=== PATIENT | male | born 1955 | race Caucasian/White ===

== ENCOUNTER → 2017-02-17 | Outpatient (REF) ==
[~2017-02-17] MED LIST: ALEVE 220MG220 MG PO; CENTRUM SILVER1 CTB PO; EC NAPROSYN500 MG PO; PLAQUENIL 200M200 MG PO; PRINZIDE 12.5 M1 TAB PO
[2017-02-17 18:58] LABS: TOTAL IRON BINDING CAPACITY 266 ug/dL (261-462)
[2017-02-17 19:08] LABS: FERRITIN 523 ng/mL (18-464)
== END ==
LOC: ZLAB.WCH 18:16
PROVIDERS: Nurse Practitioner Family
DX: Z01.89 Encounter for other specified special examinations (principal)

== ENCOUNTER → 2019-04-17 | Outpatient (CLI) | payer BC | LOC: COL.RAD 11:00 | DX: R06.02 Shortness of breath (principal) ==

== ENCOUNTER 2019-09-13 12:20 | Inpatient (IN) | payer BC ==
[~2019-09-13] VITALS: Ht 177.8 cm; Wt 96.7 kg
[2019-10-18] VITALS (9 sets, daily range): BP systolic 104–142; BP diastolic 57–88; PULSE 16–99; TEMP 98.7–98.9
[2019-10-18] MEDS ORDERED: NORVASC 10MG10 MG PO (07:53)
[2019-10-18] MEDS ORDERED: MICARDIS80 MG PO (07:54)
[2019-10-18 09:47] LABS: ALBUMIN 4.1 gm/dL (3.5-5.0); BILIRUBIN,TOTAL 0.5 mg/dL (0.0-1.0); CALCIUM 10.3 mg/dL (8.4-10.2); CREATININE, serum 1.12 (0.66-1.25); POTASSIUM 4.9 mmol/L (3.4-5.0); TOTAL PROTEIN 7.6 gm/dL (6.4-8.2)
--- NOTE | 2019-10-18 11:55 | NUR ---
PATIENT BACK IN ROOM 331 POST OP RTK. A&O. VSS. DENIES PAIN IN RLE. PATIENT IS ABLE TO MOVE BLE. RTK DRESSING IS CD&I WITH ACEWRAP AND ICE PACK INPLACE. TEDS TO LLE. SCD'S TO BLE. POSITIVE PEDAL PULSES TO BLE. PATIENT TOLERATING LIQUIDS WELL. NO C/O N/V. IV FLUIDS INFUSING INTO LEFT WRIST IV VIA PUMP. HEAD TO TOE ASSESSMENT NWL. FAMILY AT BEDSIDE. CALL LIGHT IN REACH.
--- NOTE | 2019-10-18 14:12 | NUR ---
SW met with the patient to discuss discharge plan. The patient lives in [place] with his , Juan (ph#[phone]). He reports independence with ADLs and has a FWW and crutches. The patient's primary care provider is Meredith Mak PA-C and he receives his medications at [facility]. He reports no difficulties obtaining his meds. The patient does not have advanced directives in EMR, but he states that he does have them completed. He states that his is his DPOA-HC. The patient plans to return home with his and receive outpatient PT at [facility] upon discharge. No additional needs at this time.
--- NOTE | 2019-10-18 19:00 | NUR ---
PATIENT RESTING IN BED DURING CHANGE OF SHIFT REPORT FROM DAY SHIFT NURSE. IV FLUIDS INFUSING WITH NO PROBLEMS, PATIENT DENIES ANY NEEDS DURING REPORT. HAS VOIDED WITH NO PROBLEMS, TAKING ORAL FLUIDS/FOODS WITH NO PROBLEMS.
--- NOTE | 2019-10-18 23:00 | NUR ---
IV SITE SALINE LOCKED PER PATIENT REQUEST.
[2019-10-19] VITALS: BP 127/82; PULSE 70; TEMP 98
--- NOTE | 2019-10-19 00:30 | NUR ---
RESTING IN BED WITH NO COMPLAINTS, VOIDING WITH NO PROBLEMS, STANDS TO VOID.
--- NOTE | 2019-10-19 01:00 | NUR ---
RESTING WITH CPAP ON/EYES CLOSED/BREATHING NONLABORED & EVEN, AWAKENS WHEN NAME CALLED, DENIES ANY NEEDS OR CONCERNS.
--- NOTE | 2019-10-19 03:59 | NUR ---
Patient sleeping, resting with eyes closed with breathing nonlabored and even, continues CPAP. Does not awaken when door to room opens.
[2019-10-19 04:33] VITALS: BP 127/74; PULSE 68; TEMP 98
--- NOTE | 2019-10-19 07:37 | NUR ---
Patient resting in bed during change of shift report given to day shift with no needs reported at time of report.
[2019-10-19 07:48] VITALS: BP 136/59; PULSE 79; TEMP 98.2
[2019-10-19 08:28] LABS: HEMATOCRIT 28.5 % (42.0-52.0); HEMOGLOBIN 9.6 g/dl (13.5-18.0)
--- NOTE | 2019-10-19 09:24 | NUR ---
PT OUT TO [facility]TA AMBULATING 100 + FT WITH THERAPY. PAIN WELL CONTROLLED WITH PO PAIN MEDS. DRESSING CDI TO RIGHT KNEE.
[2019-10-19 09:37] VITALS: BP 136/59; PULSE 79; TEMP 98.2
--- NOTE | 2019-10-19 11:36 | NUR ---
First visit from the master ocean yacht. No needs right now.
[2019-10-19 12:14] VITALS: BP 129/62; PULSE 76; TEMP 98
[2019-10-19] MEDS ORDERED: ASPI325T6 PO (16:42)
[2019-10-19] MEDS ORDERED: ROXICODONE 55 MG/TAB PO (16:43)
[2019-10-19] MEDS ORDERED: ULTRAM 50MG TAB50 MG PO (16:43)
[2019-10-19] MEDS ORDERED: SENNA-S 50 MG-81 TAB PO (16:43)
--- NOTE | 2019-10-19 17:41 | NUR ---
DISCHARGE INSTRUCTIONS PROVIDED TO PT AND ROLANDOY. QUESTIONS ANSWERED PT TAKEN BY WHEEL CHAIR TO FRONT.
== END 2019-10-19 17:41 | disposition home or self-care (01) | DRG 470 ==
LOC: JCC 10-10 13:30
PROVIDERS: Registered Nurse; ADMIT Orthopaedic Surgery
PROC: 0SRC0J9 Replacement of Right Knee Joint with Synthetic Substitute, Cemented, Open Approach (ICD-10-PCS; principal; 2019-10-18 10:30)
DX: M17.11 Unilateral primary osteoarthritis, right knee (principal); I10 Essential (primary) hypertension; M10.9 Gout, unspecified; F17.220 Nicotine dependence, chewing tobacco, uncomplicated; G47.33 Obstructive sleep apnea (adult) (pediatric); D64.9 Anemia, unspecified; Z98.52 Vasectomy status
CPT/HCPCS: A9284; C1776; J0690; J1100; J2250; J2274; J2704; J7120

== ENCOUNTER 2020-01-29 13:29 | Inpatient (IN) | payer BC ==
[~2020-01-29] VITALS: Ht 177.8 cm; Wt 99.0 kg
[~2020-01-29 13:29] MED LIST changes: +ASPI325T6 PO; +MICARDIS80 MG PO; +NORVASC 10MG10 MG PO; +ROXICODONE 55 MG/TAB PO; +SENNA-S 50 MG-81 TAB PO; +ULTRAM 50MG TAB50 MG PO
[2020-03-18] VITALS (12 sets, daily range): BP systolic 109–140; BP diastolic 52–87; PULSE 57–95; TEMP 97.7–98.8
[2020-03-18 05:42] LABS: CALCIUM 9.9 mg/dL (8.4-10.2); CREATININE, serum 1.02 (0.66-1.25)
[2020-03-18] MEDS ORDERED: IRON 27 MG PO (05:44)
[2020-03-18] MEDS ORDERED: VTAMINC250TA PO (05:46)
[2020-03-18] MEDS ORDERED: MACUHEALTH PO (05:46)
[2020-03-18] MEDS ORDERED: FOLIC ACID 40400 MCG PO (05:47)
--- NOTE | 2020-03-18 11:06 | NUR ---
PT TO ROOM 327 PER BED WITH REPORT FROM EDU SEAMAN PACU GIVING REPORT AT 1030. PT IS A/O X3, LUNGS CTA, BOWEL SOUNDS PRESENT. DRESSING TO LEFT KNEE CDI WITH OCCLUSIVE MARILU WRAP OVER BULKY DRESSING. ICEPACK INPLACE. PEDAL PULSES PALPABLE. IV PER PUMP. SCDS BILATERALLY.
--- NOTE | 2020-03-18 11:30 | NUR ---
Skull Grinder met with the patient to complete initial intake. The patient lives in [place] with his , Juan. The patient has a cane, walker, crutches, and a CPAP. He receives his CPAP supplies from [facility]. The patient's PCP is Meredith Aly PA-C. The patient receives medications from [facility] with no difficulties. The patient has advance directives and they designate Juan. The patient plans to return home at discharge. He will be going to outpatient PT in [place] at [facility]. The first appointment is this week Wednesday at 0930. Juan will provide transportation. There are no additional needs at this time.
--- NOTE | 2020-03-18 12:44 | NUR ---
PT UP TO BR WITH SBAX1. VOIDED AND RETURNED TO BED. STEADY GAIT. PT RATING PAIN OF 3/10
--- NOTE | 2020-03-18 15:38 | NUR ---
PT UP TO BR VOIDED AND RETURNED TO RECLINER.
--- NOTE | 2020-03-18 18:13 | NUR ---
PT VOIDING WITH NO PROBLEMS. PAIN CONTROLLED WITH PO PAIN MEDS AT THIS TIME. DRESSINTG TO LEFT KNEE CDI.
--- NOTE | 2020-03-18 19:45 | NUR ---
Patient ambulated in hallways approx 50 ft. Assessment complete. Lungs clear. Heart sounds normal. Bowels active x4. Pulses present throughout. No edema noted. IV right forearm infusing without complications. Reports 5/10 pain in left knee. Ice applied. Recently received tramadol. Left knee bulky dressing CDI. CMS intact. Denies needs at this time. Call light in reach.
--- NOTE | 2020-03-18 22:56 | NUR ---
Patient ambulated to restroom. Tolerated well.
[2020-03-19 00:20] VITALS: BP 130/66; PULSE 58; TEMP 98.7
--- NOTE | 2020-03-19 00:57 | NUR ---
Resting in bed. Denies needs. Call light in reach.
[2020-03-19 04:17] VITALS: BP 113/57; PULSE 55; TEMP 97.5
--- NOTE | 2020-03-19 05:35 | NUR ---
Patient had uneventful night. Ambulated in hallways prior to bed. Resting in bed this AM. Call light in reach.
--- NOTE | 2020-03-19 06:50 | NUR ---
Report given to Anastacio SEAMAN
[2020-03-19 06:52] LABS: HEMATOCRIT 26.6 % (42.0-52.0); HEMOGLOBIN 8.9 g/dl (13.5-18.0)
[2020-03-19] MEDS ORDERED: NORCO 325 MG-51 TAB PO (07:19)
[2020-03-19] MEDS ORDERED: ASPI325T6 PO (07:19)
[2020-03-19] MEDS ORDERED: ULTRAM 50MG TAB50 MG PO (07:19)
[2020-03-19] MEDS ORDERED: SENOKOT S 50 MG1 TAB PO (07:20)
[2020-03-19 07:32] VITALS: BP 132/58; PULSE 86; TEMP 98.7
--- NOTE | 2020-03-19 09:35 | NUR ---
PT UP TO RECLINER FOR BREAKFAST THEN RETURNED TO BED TO REST. DRESSING TO LEFT KNEE CDI WITH MARILU WRAP OVER INCISION. PAIN WELL CONTROLLED WITH PO MEDS. AMBUALTES WITH STEADY GAIT.
--- NOTE | 2020-03-19 10:35 | NUR ---
DRESSING CHANGE COMPLETE. AQUACEL PLACED OVER INCISION. INCISION CLOSED WITH DERMABOND WITH NO DRAINAGE AND WELL APPROXIMATED EDGES.
--- NOTE | 2020-03-19 11:11 | NUR ---
PT CLEARED BY THERAPY TO BE INDEPENDENT IN ROOM. PT STABLE ON FEET AT THIS TIME.
--- NOTE | 2020-03-19 12:15 | NUR ---
First visit from the civil drafting technician. No needs right now.
[2020-03-19 12:23] VITALS: BP 148/52; PULSE 82; TEMP 98
--- NOTE | 2020-03-19 14:24 | NUR ---
discharge instructions reviewed with pt. questions answered. pt taken oun by wheel chair.
--- NOTE | 2020-03-19 16:25 | NUR ---
The patient discharged home today, 03/19 with his . There are no additional needs at this time.
[2020-03-20] MEDS ORDERED: NORCO 325 MG-51 TAB PO ×2 (15:14)
== END 2020-03-19 14:20 | disposition home or self-care (01) | DRG 470 ==
LOC: JCC 03-18 05:08
PROVIDERS: Nurse Anesthetist, Certified Registered; ADMIT Orthopaedic Surgery
PROC: 0SRD0J9 Replacement of Left Knee Joint with Synthetic Substitute, Cemented, Open Approach (ICD-10-PCS; principal; 2020-03-18 07:30)
DX: M17.12 Unilateral primary osteoarthritis, left knee (principal); M10.9 Gout, unspecified
CPT/HCPCS: A9284; C1776; J0690; J1100; J1885; J2250; J2405; J2704; J3010; J7030

== ENCOUNTER → 2021-06-02 | Outpatient (CLI) | payer BC ==
[~2021-06-02] MED LIST changes: +FOLIC ACID 40400 MCG PO; +IRON 27 MG PO; +MACUHEALTH PO; +NORCO 325 MG-51 TAB PO; +SENOKOT S 50 MG1 TAB PO; +VTAMINC250TA PO
== END ==
LOC: COL.CARD 09:49
DX: R55 Syncope and collapse (principal)

== ENCOUNTER 2022-02-24 05:30 | Day surgery (SDC) | payer MEDICARE ==
[~2022-02-24] VITALS: Ht 210 cm; Wt 95.3 kg
[2022-02-24] VITALS (11 sets, daily range): BP systolic 98–128; BP diastolic 47–62; PULSE 50–76; TEMP 97.4–98.6
[2022-02-24 06:31] LABS: ALBUMIN 3.7 gm/dL (3.4-4.8); BILIRUBIN,TOTAL 0.4 mg/dL (0.2-1.2); CALCIUM 9.7 mg/dL (8.4-10.2); CREATININE, serum 1.09 mg/dL (0.72-1.25); POTASSIUM 4.1 mmol/L (3.5-4.5); TOTAL PROTEIN 7.1 gm/dL (6.2-8.1)
[2022-02-24] MEDS ORDERED: NATURAL IRON65 MG (06:39)
[2022-02-24] MEDS ORDERED: VITAMIND3 5000 PO (06:41)
[2022-02-25 04:24] VITALS: BP 104/45; PULSE 54; TEMP 98
[2022-02-25 06:44] LABS: HEMOGLOBIN 9.4 g/dl (13.5-18.0)
[2022-02-25 07:14] LABS: CALCIUM 8.7 mg/dL (8.4-10.2); CREATININE, serum 1.21 mg/dL (0.72-1.25); POTASSIUM 4.6 mmol/L (3.5-4.5)
[2022-02-25 07:48] VITALS: BP 108/51; PULSE 50; TEMP 98.5
== END 2022-02-25 11:57 | disposition home or self-care (01) ==
LOC: SDCO 05:30 → SURG 11:50 → SDCO 17:15 → SURG 19:25 → SDCO 19:25
PROVIDERS: Registered Nurse; Urology
DX: C61 Malignant neoplasm of prostate (principal); G47.33 Obstructive sleep apnea (adult) (pediatric); E87.1 Hypo-osmolality and hyponatremia; F17.290 Nicotine dependence, other tobacco product, uncomplicated
CPT/HCPCS: A4314; A9284; J0690; J1100; J1885; J2250; J2405; J2704; J3010; J7120

== ENCOUNTER → 2023-12-07 | Outpatient (CLI) | payer MEDICARE ==
[~2023-12-07] MED LIST changes: +NATURAL IRON65 MG; +VITAMIND3 5000 PO
== END ==
LOC: COL.RAD 09:07
DX: M25.562 Pain in left knee (principal); Z96.652 Presence of left artificial knee joint
CPT/HCPCS: A9503-JZ